=== PATIENT | female | born 1995 | race Hispanic/Latino ===

== ENCOUNTER 2017-07-26 18:15 | Emergency (ER) | payer BC ==
[2017-07-26] MEDS ORDERED: Acetaminophen 500 MG TAB ONE (20:34)
[2017-07-26] MEDS ORDERED: Metoclopramide HCl 10 MG/2 ML VIAL ONE (21:01)
[2017-07-26 21:25] LABS: Bilirubin Negative (Negative); Blood, Urine Negative (Negative); Glucose, Urine (Dipstick) Negative (Negative); Ketone, Urine 15 mg/dL (Negative); Nitrite Negative (Negative); Protein, Urine (Dipstick) Negative (Neg-Trace); Urobilinogen 0.2 mg/dL (0.2-1.0)
[2017-07-26 21:35] LABS: #Eosinphils 0.1 thou/uL (0.0-0.7); #Lymphocytes 1.8 thou/uL (1.20-3.40); #Monocytes 0.9 thou/uL (0.11-0.59); #Neutrophils 3.9 thou/uL (1.40-6.50); %Basophils 0.3 % (0.0-1.0); %Lymphocytes 27.6 % (21.0-51.0); %Monocytes 12.9 % (0.0-10.0); Hematocrit 37.5 % (36.0-47.0); Mean Platelet Volume 12.9 fL (7.4-10.4); Red Blood Cell (RBC) Count 4.45 mill/uL (4.20-5.40); White Blood Cell (WBC) Count 6.7 thou/uL (4.8-10.8)
[2017-07-26 21:36] LABS: ALT (SGPT) 10 U/L (8-55); AST (SGOT) 13 U/L (5-34); Alkaline Phosphatase 60 U/L (40-150); Anion Gap 13 mmol/L (10-20); BUN (Urea Nitrogen) 10 mg/dL (7.0-18.7); Bilirubin, Total 0.3 mg/dL (0.2-1.2); Calc. Creatinine Clearance 0 mL/min (70-130); Calcium 9.1 mg/dL (7.8-10.44); Carbon Dioxide 24 mmol/L (22-29); Chloride 105 mmol/L (98-107); Estimated GFR-MDRD Greater than 90; Protein, Total 6.9 g/dL (6.0-8.3)
--- NOTE | 2017-07-26 22:07 | ULT ---
PELVIC ULTRASOUND: Date: 07-26-17 History: Pelvic pain. Spotting last week. FINDINGS: Multiple transabdominal sonographic images of the pelvis are obtained. The uterus measures 10 cm x 6.2 cm x 7.7 cm. There is a fluid collection seen within the endometrial canal which contains a pole and yolk sac. The crown rump length measures 1.13 cm consistent w ith gestational age by ultrasound of 7 weeks 2 days. Gestational age by the last menstrual period is also 7 weeks 2 days. Cardiac doppler demonstrates heart tones with heart rate of 150 be ats/minute. There is small crescentric hypoechoic area in a subchorionic location adjacent to the gestational sa c measuring 2.2 cm x 0.8 cm suggestive of a small subchorionic hemorrhage. The ovaries are visualized bilaterally and demonstrate a normal sonographic appearance. The right ov braden measures 3.9 cm x 2.3 cm x 2.8 cm with the left ovary measuring 4 cm x 2.6 cm x 4 cm. Doppler evaluation of each ovary does demonstrate arterial flow. A 2.2 cm anechoic structure is seen within the left ovary compatible with small cyst. No free fluid is seen in the cul-de-sac. IMPRESSION: 1. Small subchorionic hemorrhage. Continued follow up is recommended. 2. Single intrauterine gestation with heart tones documented. Gestational age by measurement o f the crown rump length is 7 weeks 2 days. 3. Above findings discussed with Dr. Ulrich on 07-26-17 at 2137 hours. POS: [facility]
== END 2017-07-26 22:14 | disposition home or self-care (01) ==
LOC: ERS 18:15
DX: O20.0 Threatened abortion (principal); Z3A.01 Less than 8 weeks gestation of pregnancy
CPT/HCPCS: 76856; 80053; 81003; 82570; 84156; 84702; 85025; 87480; 87491; 87510; 87591; 87660; 93976; 96374; J2765

== ENCOUNTER 2017-08-19 23:34 | Emergency (ER) | payer BC, OTHER ==
[2017-08-20] MEDS ORDERED: Insulin Regular 300 UNITS/3 ML VIAL ONE (01:46)
== END 2017-08-20 01:28 | disposition home or self-care (01) ==
LOC: ERS 23:34
DX: O99.89 Other specified diseases and conditions complicating pregnancy, childbirth and the puerperium (principal); R10.84 Generalized abdominal pain; R10.12 Left upper quadrant pain; R10.11 Right upper quadrant pain; F41.9 Anxiety disorder, unspecified; F32.9 Major depressive disorder, single episode, unspecified; Z3A.12 12 weeks gestation of pregnancy
CPT/HCPCS: J1815

== ENCOUNTER 2017-09-15 18:08 | Emergency (ER) | payer BC, OTHER ==
[2017-09-15 18:38] LABS: Bilirubin Negative (Negative); Blood, Urine Trace (Negative); Glucose, Urine (Dipstick) Negative (Negative); Ketone, Urine Trace mg/dL (Negative); Nitrite Negative (Negative); Protein, Urine (Dipstick) Negative (Neg-Trace); Urobilinogen 0.2 mg/dL (0.2-1.0)
[2017-09-15 18:42] LABS: Bacteria/HPF Rare-Few HPF (None Seen); Hyaline Casts/LPF 0-3 HYALINE CAST LPF (0-3 Hyaline); RBC/HPF 0-3 HPF (0-3); Squamous Epithelial 0-3 HPF (0-3); WBC/HPF 0-3 HPF (0-3)
[2017-09-15] MEDS ORDERED: Metoclopramide HCl 10 MG/2 ML VIAL ONE (19:18)
== END 2017-09-15 20:49 | disposition home or self-care (01) ==
LOC: ERS 18:08
DX: O23.42 Unspecified infection of urinary tract in pregnancy, second trimester (principal); O99.342 Other mental disorders complicating pregnancy, second trimester; F41.9 Anxiety disorder, unspecified; F32.9 Major depressive disorder, single episode, unspecified; Z3A.14 14 weeks gestation of pregnancy
CPT/HCPCS: 81003; 81015; 87086; 96361; 96374; J2765

== ENCOUNTER 2018-07-11 15:19 | Emergency (ER) | payer SELFPAY ==
[2018-07-11 16:10] LABS: #Basophils 0.1 thou/uL (0.0-0.2); #Eosinphils 0.1 thou/uL (0.0-0.7); #Monocytes 0.6 thou/uL (0.11-0.59); %Basophils 0.7 % (0.0-1.0); %Eosinophils 1.9 % (0.0-10.0); %Lymphocytes 29.9 % (21.0-51.0); %Monocytes 8.8 % (0.0-10.0); %Neutrophils 58.6 % (42.0-75.0); Mean Corpuscular HGB CONC 33.3 g/dL (32.0-36.0); Mean Corpuscular Volume 81.1 fL (78.0-98.0); Mean Platelet Volume 11.8 fL (7.4-10.4); Platelet Count 108 thou/uL (130-400); RBC Distribution Width 13.9 % (11.5-14.5); Red Blood Cell (RBC) Count 4.81 mill/uL (4.20-5.40); White Blood Cell (WBC) Count 6.8 thou/uL (4.8-10.8)
[2018-07-11 16:18] LABS: Large Platelets SLIGHT
[2018-07-11 16:19] LABS: PLT Morphology Comment Appears Decreased; RBC Morphology Normal
[2018-07-11 16:30] LABS: Bilirubin Negative (Negative); Blood, Urine Large (Negative); Clarity CLEAR (Clear); Glucose, Urine (Dipstick) Negative (Negative); Leukocyte Negative (Negative); Nitrite Negative (Negative); Protein, Urine (Dipstick) Negative (Neg-Trace); Specific Gravity, Urine 1.026 (1.002-1.036)
[2018-07-11 16:32] LABS: Bacteria/HPF None Seen HPF (None Seen); Hyaline Casts/LPF 0-3 HYALINE CAST LPF (0-3 Hyaline); Pathc Cast-AUWi Flag 0.14 (0-2.49); RBC/HPF GREATER THAN 50-TNTC HPF (0-3); Squamous Epithelial 0-3 HPF (0-3); WBC/HPF 0-3 HPF (0-3)
== END 2018-07-11 18:40 | disposition home or self-care (01) ==
LOC: ERS 15:19
DX: N94.6 Dysmenorrhea, unspecified (principal); F41.9 Anxiety disorder, unspecified; F32.9 Major depressive disorder, single episode, unspecified; F17.210 Nicotine dependence, cigarettes, uncomplicated
CPT/HCPCS: 36415; 81003; 81015; 84702; 85025; 86850; 86900; 86901; 99284

== ENCOUNTER 2018-10-01 16:22 | Emergency (ER) | payer SELFPAY ==
[2018-10-01] MEDS ORDERED: Cyclobenzaprine 10 MG TAB ONE (17:59)
[2018-10-01] MEDS ORDERED: Dexamethasone 10 MG/ML VIAL ONE (17:59)
[2018-10-01] MEDS ORDERED: Ketorolac Tromethamine 30 MG/ML VIAL ONE (17:59)
== END 2018-10-01 18:50 | disposition home or self-care (01) ==
LOC: ERS 16:22
DX: M54.5 Low back pain (principal); J02.9 Acute pharyngitis, unspecified; F41.9 Anxiety disorder, unspecified; F32.9 Major depressive disorder, single episode, unspecified; F17.210 Nicotine dependence, cigarettes, uncomplicated; V43.62XA Car passenger injured in collision with other type car in traffic accident, initial encounter
CPT/HCPCS: 96374; 96375; J1100; J1885

== ENCOUNTER 2018-12-08 22:33 | Emergency (ER) | payer BC, SELFPAY ==
[2018-12-08 23:07] LABS: #Eosinphils 0.1 thou/uL (0.0-0.7); #Lymphocytes 2.6 thou/uL (1.20-3.40); #Monocytes 0.9 thou/uL (0.11-0.59); #Neutrophils 4.6 thou/uL (1.40-6.50); %Basophils 0.5 % (0.0-1.0); %Eosinophils 1.4 % (0.0-10.0); %Lymphocytes 31.3 % (21.0-51.0); %Monocytes 10.9 % (0.0-10.0); Hemoglobin 12.4 g/dL (12.0-16.0); Mean Corpuscular Volume 81.3 fL (78.0-98.0); Mean Platelet Volume 13.8 fL (7.4-10.4); Platelet Count 98 thou/uL (130-400); Red Blood Cell (RBC) Count 4.76 mill/uL (4.20-5.40); White Blood Cell (WBC) Count 8.2 thou/uL (4.8-10.8)
[2018-12-08 23:25] LABS: ALT (SGPT) 11 U/L (8-55); AST (SGOT) 14 U/L (5-34); Albumin 3.8 g/dL (3.5-5.0); Alkaline Phosphatase 57 U/L (40-150); Anion Gap 14 mmol/L (10-20); BUN (Urea Nitrogen) 9 mg/dL (7.0-18.7); Bilirubin, Total 0.2 mg/dL (0.2-1.2); Calc. Creatinine Clearance 0 mL/min (70-130); Carbon Dioxide 24 mmol/L (22-29); Chloride 108 mmol/L (98-107); Estimated GFR-MDRD Greater than 90; Globulin 2.5 g/dL (2.4-3.5); Glucose 84 mg/dL (70-105); Lipase 41 U/L (8-78); Potassium 3.9 mmol/L (3.5-5.1); Protein, Total 6.3 g/dL (6.0-8.3); Sodium 142 mmol/L (136-145)
[2018-12-08] MEDS ORDERED: Meclizine HCl 25 MG TAB ONE (23:57)
[2018-12-08] MEDS ORDERED: Ondansetron ODT 4 MG TAB ONE (23:57)
[2018-12-09 00:13] LABS: Bilirubin Negative (Negative); Blood, Urine Negative (Negative); Clarity CLOUDY (Clear); Glucose, Urine (Dipstick) Negative (Negative); Leukocyte Negative (Negative); Nitrite Negative (Negative); Protein, Urine (Dipstick) Negative (Neg-Trace); Urobilinogen 0.2 mg/dL (0.2-1.0)
[2018-12-09 00:15] LABS: Pregnancy Test - Urine (BHCG) Negative (Negative); Pregu Control Background? CLEAR/WHITE (CLR/WHITE); Pregu Control Bar Appear? YES (CONTROL BAR)
== END 2018-12-09 00:37 | disposition home or self-care (01) ==
LOC: ERS 22:33
DX: H81.13 Benign paroxysmal vertigo, bilateral (principal); F41.9 Anxiety disorder, unspecified; F32.9 Major depressive disorder, single episode, unspecified; F17.210 Nicotine dependence, cigarettes, uncomplicated
CPT/HCPCS: 36415; 80053; 81003; 81025; 83690; 85025; 87804; 99284; Q0162